=== PATIENT | male | born 1965 | race Caucasian/White ===

== ENCOUNTER 2017-11-25 18:45 | Emergency (ER) | payer BC ==
--- NOTE | 2017-11-25 18:58 | UC ---
Dental HPI - HPI Summary HPI Summary: 51 yo male presents with right upper tooth pain. He tells me that for the last 1.5 - 2 years he has had right upper tooth pain that has been capped multiple times. Over the lsat 4-5 days has had increased pain and sensitivity in that area. He made an appointment with his dentist for tuesday, but his dentist recommended being put on an antibiotic before this visit in case he needs dental work done. Denies fever, chills, ear pain, sore throat, n/v. - History of Current Complaint Stated Complaint: TOOTH ACHE Time Seen by Provider: 11/25/17 18:57 Hx Obtained From: Patient Onset/Duration: Gradual Onset Severity: Moderate Pain Intensity: 5 Pain Scale Used: 0-10 Numeric Aggravating Factor(s): Heat, Cold - Allergies/Home Medications Allergies/Adverse Reactions: Allergies Allergy/AdvReac Type Severity Reaction Status Date / Time No Known Allergies Allergy Verified 11/25/17 18:53 PMH/Surg Hx/FS Hx/Imm Hx GI/ History: Gastroesophageal Reflux - Surgical History Surgical History: Yes Surgery Procedure, Year, and Place: WISDOM TEETH EXTRACTION - Family History Known Family History: Positive: Hypertension - Social History Occupation: Employed Full-time Lives: With Family Alcohol Use: None Substance Use Type: None Smoking Status (MU): Never Smoked Tobacco - Immunization History Most Recent Influenza Vaccination: none Review of Systems Constitutional: Negative Skin: Negative Eyes: Negative ENT: Dental Pain Respiratory: Negative Cardiovascular: Negative Neurovascular: Negative Neurological: Negative Psychological: Negative All Other Systems Reviewed And Are Negative: Yes Physical Exam - Summary Physical Exam Summary: GENERAL: NAD. WDWN. No pain distress. SKIN: No rashes, sores, lesions, or open wounds. HEENT: Head: AT/NC. NTTP left temporal artery. Eyes: EOM intact. Conjunctiva clear without inflammation or discharge. Ears: Hearing grossly normal. TMs intact, no bulging, erythema, or edema. Nose: Nasal mucosa pink and moist. NTTP maxillary and frontal sinus. Throat: Posterior oropharynx without exudates, erythema, or tonsillar enlargement. Uvula midline. NECK: Supple. Nontender. No lymphadenopathy. CHEST: CTAB. No r/r/w. No accessory muscle use. Breathing comfortably and in no distress. CV: RRR. Without m/r/g. Pulses intact. Brisk cap refill. NEURO: Alert. CN II-XII grossly intact. PSYCH: Age appropriate behavior. Triage Information Reviewed: Yes Dental: Positive: Percussion Tenderness @ - Tooth #2. Negative: Dental Fracture @, Abscess @, Cervical Lymphadenopathy, Bleeding Dental Complaint Course/Dx - Course Course Of Treatment: Dental pain Tooth #2. No obvious sign of abscess or infection, but will cover with amoxicillin for his dental appointment on tuesday. - Differential Dx/Diagnosis Provider Diagnoses: Tooth #2 pain Discharge - Sign-Out/Discharge Documenting (check all that apply): Discharge/Admit/Transfer - Discharge Plan Condition: Stable Disposition: HOME Prescriptions: Amoxicillin PO (*) [Amoxicillin 500 MG CAP*] 500 mg PO Q12H #14 cap Patient Education Materials: Toothache (ED) Referrals: Bigg López MD [Primary Care Provider] - Additional Instructions: If you develop a fever, shortness of breath, chest pain, new or worsening symptoms - please call your PCP or go to the ED. Your blood pressure was high at todays visit. Please see your primary provider within 4 weeks for recheck and re-evaluation. 1) Please keep your appointment with your dentist on Tuesday - Billing Disposition and Condition Condition: STABLE Disposition: HOME
[2017-11-25 18:59] VITALS: BP 157/82
== END 2017-11-25 19:10 | disposition home or self-care (01) ==
LOC: UCEAST 18:45
DX: K08.89 Other specified disorders of teeth and supporting structures (principal)
CPT/HCPCS: 99212; G0463